=== PATIENT | female | born 2000 | race Caucasian/White ===

== ENCOUNTER 2024-03-11 11:38 | Outpatient (CLI) | payer BC, SELFPAY ==
[2024-03-11 11:46] VITALS: PULSE 75; O2SAT 98
[2024-03-11 11:47] VITALS: BP 112/67; PULSE 88; RESP 16; TEMP 37.1
[2024-03-11] MEDS: CALCIUM CARBONATE 500 MG CHEW PO (13:19)
[2024-03-11 13:26] LABS: Hematocrit 36.8 % (33.0-51.0); Hemoglobin* 12.8 gm/dL (12.0-16.0); Mean Corpuscular HGB Conc 35 gm/dL (32-36); Mean Corpuscular Hemoglobin 33 pg (26-34); Mean Corpuscular Volume 95 fL (80-100); Platelet Count* 141 K/uL (140-440); Red Blood Count 3.87 m/uL (4.00-5.20); White Blood Count* 8.79 K/uL (4.50-11.00)
[2024-03-11 13:31] LABS: Alanine Aminotransferase* 35 U/L (4-35); Aspartate Amino Transferase* 43 U/L (12-35); Creatinine* 0.5 mg/dL (0.5-1.5); Estimated Glomerular Filt Rate 137 ml/min; Slide Review Reflex No
[2024-03-11 13:32] LABS: Appearance Urine Slightly Cloudy (Clear); Bilirubin Urine Negative (Negative); Blood Urine Negative (Negative); Color Urine Yellow (Yellow); Glucose Urine Negative (Negative); Ketones Urine Negative (Negative); Leukocyte Esterase Urine 1+ (Negative); Nitrite Urine Negative (Negative); Protein Urine Negative (Negative); Urobilinogen Urine 0.2 (0.2-1.0)
[2024-03-11 13:36] LABS: Total Protein Urine 12 mg/dL
[2024-03-11] MEDS: LACTATED RINGERS 1000 ML 1,000 ML IV (13:36)
[2024-03-11 13:37] LABS: Protein Creatinine Ratio Urine 0.52 (0-0.19)
[2024-03-11 13:51] LABS: Bacteria Urine Moderate; Clue Cells No Clue Cells Seen (None Seen); RBC Urine 0-2 (0-2); Squamous Epithelial Cell Urine Many (None-Few); Trichomonas No Trichomonas Seen (None Seen); Yeast No Yeast Seen (None Seen)
--- NOTE | 2024-03-11 14:18 | PM.OBLDTN ---
OB - Triage/Final Diagnosis Visit Information Date Seen: 03/11/24 Narrative: The patient is a 23 year old 1 para 0 at 24.1 weeks gestation who presents with lower abdominal pain and cramping. Symptoms started around 730 this morning. Has cramping pain in lower abdomen as well as intermittent sharp pain in RUQ. Also having headaches which are more intense than her usual headaches. Having reflux, but no nausea or vomiting. Has had increase in vaginal discharge noted this morning as well. No contractions. movement seemed decreased earlier, but seems normal since arriving here. No vaginal bleeding. No contractions. No recent abdominal trauma. Took Tylenol at home this AM with little improvement. course has been otherwise uncomplicated. Evaluation Laboratory results: Laboratory Tests 03/11/24 03/11/24 Range/Units 13:11 12:33 WBC 8.79 (4.50-11.00) K/uL RBC 3.87 L (4.00-5.20) m/uL Hgb 12.8 (12.0-16.0) gm/dL Hct 36.8 (33.0-51.0) % MCV 95 (80-100) fL MCH 33 (26-34) pg MCHC 35 (32-36) gm/dL Plt Count 141 (140-440) K/uL Creatinine 0.5 (0.5-1.5) mg/dL Estimated GFR 137 ml/min AST 43 H (12-35) U/L ALT 35 (4-35) U/L Urine Color Yellow (Yellow) Urine Appearance Slightly Cloudy A (Clear) Urine pH 7.0 (5.0-8.5) Ur Specific Pandora 1.010 (1.000-1.030) Urine Protein Negative (Negative) Urine Glucose (UA) Negative (Negative) Urine Ketones Negative (Negative) Urine Blood Negative (Negative) Urine Nitrite Negative (Negative) Urine Bilirubin Negative (Negative) Urine Urobilinogen 0.2 (0.2-1.0) Ur Leukocyte Esterase 1+ A (Negative) Urine RBC 0-2 (0-2) Urine WBC 2-5 (0-5) Ur Squamous Epith Cells Many A (None-Few) Urine Bacteria Moderate A (None) Urine Creatinine 23.0 mg/dL Protein/Creatinin Ratio 0.52 H (0-0.19) Urine Total Protein 12 mg/dL Vaginal Trichomonas No Trichomonas Seen (None Seen) Vaginal Yeast No Yeast Seen (None Seen) Vaginal Clue Cells No Clue Cells Seen (None Seen) Vital signs: Vital Signs - 24 hr 03/11/24 11:46 03/11/24 11:47 03/11/24 11:47 Temperature 98.8 F Pulse Rate 88 Respiratory Rate 16 Blood Pressure 112/67 Pulse Oximetry 98 Comments: Gen: alert, pleasant, NAD Heart: RRR, no murmurs Lungs: CTA b/l Abd: gravid, soft, tender to palpation in suprapubic region. somewhat tender in b/l lower quadrants and RUQ as well Extremities: no edema [place]: uterine irritability Fetus (Single) Heart Rate Baseline: 135 Brickmason Helper Variability: Moderate (6-25) Monitor Accelerations: Absent (appropriate for gestational age) Monitor Decelerations: None Final Diagnosis (1) Cystitis during , antepartum: Status: Acute Problem details: Labs appear c/w cystitis. UCX pending. Will start tx with Keflex. Hydrating with IV fluids here and treating headache with acetaminophen and Reglan. Plan to obtain Amnisure as well to rule out ROM. Will repeat UA following treatment to ensure resolution. Additionally, noted elevated urine protein/creatinine ratio and mildly elevated AST. Normal BP. Will repeat these in outpatient setting as well, particularly urine protein/creatinine. Total Time Spent Total Time Spent: 60 minutes
[2024-03-11] MEDS: METOCLOPRAMIDE 10 MG TABLET PO (14:35)
[2024-03-11] MEDS: ACETAMINOPHEN 500 MG TABLET 1000 MG PO (14:35)
[2024-03-11] MEDS: cephALEXin 500 MG CAPSULE PO (15:09)
[2024-03-11 15:27] LABS: Amnisure Rom* Negative
--- NOTE | 2024-03-11 16:17 | PC.OBNST ---
NST Note NST Note Start: 03/11/24 11:56 Freq: ONCE Status: Active Protocol: Document 03/11/24 16:16 RANJAN (Rec: 03/11/24 16:16 RANJAN [id number]) NST Note 1 Para (# of births) 0 EDC 06/30/24 Gestational Age In Weeks & Days 24 Weeks & 1 Days Patient Presented with Complaint(s) of Contractions/cramping,Pain If Pain, describe location RUQ pain Reactive Yes Appropriate for Gestational Age Yes RN Destini Sullivan, SUMMER Date 03/11/24 Reactive Yes Appropriate for Gestational Age Yes SUMMER Figueroa RN Date 03/11/24 OB NST charge Yes Complete NST Note via Write Note Yes The provider's electronic signature indicates the NST is reactive/appropriate for gestational age. *Note to provider: If an addendum is required, open the patient's chart and click on the note under the Nurse/Allied Health tab.
== END 2024-03-11 15:50 | disposition home or self-care (01) ==
LOC: OB OUT 11:39 → OB 11:39
PROVIDERS: Visit Provider Family Medicine
DX: O47.02 False labor before 37 completed weeks of gestation, second trimester (principal); Z3A.24 24 weeks gestation of pregnancy
CPT/HCPCS: 36415; 59025; 81001; 82565; 82570; 84112; 84156; 84450; 84460; 85027; 87086; 87210; 99199; G0463; A9270; J7120

== ENCOUNTER 2024-06-12 10:33 | Outpatient (CLI) | payer BC, SELFPAY ==
[2024-06-12 10:46] VITALS: PULSE 67; O2SAT 97
[2024-06-12 10:48] VITALS: BP 111/72; PULSE 71; RESP 16; TEMP 36.8
[2024-06-12 11:40] LABS: Clue Cells No Clue Cells Seen (None Seen); Trichomonas No Trichomonas Seen (None Seen); Yeast No Yeast Seen (None Seen)
[2024-06-12 11:40] LABS: Amnisure Rom* Negative
--- NOTE | 2024-06-23 15:00 | PC.OBNST ---
NST Note NST Note Start: 06/12/24 10:48 Freq: ONCE Status: Discharge Protocol: Document 06/12/24 12:20 ABP (Rec: 06/23/24 14:59 ABP [id number]) NST Note 1 Para (# of births) 0 EDC 06/30/24 Gestational Age In Weeks & Days 39 Weeks & 0 Days Patient Presented with Complaint(s) of Leaking fluid Other Complaints To note this NST is back charted and patient was 37.3 weeks gestation at time of NST . Reactive Yes SUMMER Monge, RN Date 06/12/24 Reactive Yes SUMMER Owen RN Date 06/12/24 OB NST charge Yes Complete NST Note via Write Note Yes The provider's electronic signature indicates the NST is reactive/appropriate for gestational age. *Note to provider: If an addendum is required, open the patient's chart and click on the note under the Nurse/Allied Health tab.
--- NOTE | 2024-06-26 15:06 | W.PM.NSTNOTE ---
NST Note NST Note NST Note: NST Note NST Note Start: 06/12/24 10:48 Freq: ONCE Status: Discharge Protocol: Document 06/12/24 12:20 ABP (Rec: 06/23/24 14:59 ABP [id number]) NST Note 1 Para (# of births) 0 EDC 06/30/24 Gestational Age In Weeks & Days 39 Weeks & 0 Days Patient Presented with Complaint(s) of Leaking fluid Other Complaints To note this NST is back charted and patient was 37.3 weeks gestation at time of NST . Reactive Yes SUMMER Monge, RN Date 06/12/24 Reactive Yes SUMMER Owen RN Date 06/12/24 OB NST charge Yes Complete NST Note via Write Note Yes Addendum: FHT: modeate variability, baseline 135 bpm, accels present, absent decels. Damion every 2-5 minutes.
== END 2024-06-12 12:10 | disposition home or self-care (01) ==
LOC: OB OUT 10:34 → OB 10:34
PROVIDERS: Visit Provider Student in an Organized Health Care Education/Training Program
DX: O47.1 False labor at or after 37 completed weeks of gestation (principal); Z3A.37 37 weeks gestation of pregnancy
CPT/HCPCS: 59025; 84112; 87210; G0463

== ENCOUNTER 2024-06-14 08:00 | Inpatient (IN) | payer BC, SELFPAY ==
[2024-06-14] VITALS (59 sets, daily range): BP systolic 82–130; BP diastolic 44–80; PULSE 66–93; RESP 15–18; TEMP 36.3–37; O2SAT 96–100; BMI 28.5
[2024-06-14 07:33] LABS: Amnisure Rom* POSITIVE
[2024-06-14] MEDS: LACTATED RINGERS 1000 ML 1,000 ML 1200 ML IV ×2 (08:58→09:55)
[2024-06-14 09:16] LABS: Basophils Percent Auto 0.2 % (0.0-3.0); Eosinophils Percent Auto 0.1 % (0.0-7.0); Hematocrit 38.7 % (33.0-51.0); Hemoglobin* 13.5 gm/dL (12.0-16.0); Immature Granulocytes Pct Auto 0.5 %; Lymphocytes Percent Auto 11.7 % (20-44); Mean Corpuscular HGB Conc 35 gm/dL (32-36); Mean Corpuscular Hemoglobin 33 pg (26-34); Mean Corpuscular Volume 94 fL (80-100); Monocytes Percent Auto 6.1 % (0.0-11.0); Neutrophils Percent Auto 81.4 % (42.0-72.0); Platelet Count* 124 K/uL (140-440); RDW Coefficient of Variation % 12.4 % (11.5-15.5); Red Blood Count 4.13 m/uL (4.00-5.20)
[2024-06-14] MEDS: LIDOCAINE 2% (PF) 5 ML VIAL EPIDURAL (09:33)
[2024-06-14] MEDS: ROPIVACAINE 0.2% 100 ml 100 ML 12 MG EPIDURAL (09:40)
[2024-06-14 09:47] LABS: Slide Review Reflex No
--- NOTE | 2024-06-14 09:48 | P.ANBPRC_ITS ---
PFSH PFSH Social History What is your current living situation?: I presently have a place to live Problems where you live: no known problems In the past 12 months, utilities in danger of being shut off: no In past 12 months, lack of transportation kept you from medical appts, meetings, work, or getting things needed for daily living: no In the past 12 mos, have been you worried that your food would run out before you had money to buy more?: never true In the past 12 mos, the food you bought just didn't last and you didn't have money to buy more?: never true Smoking Status: Never smoker How often does anyone, including family, friends and others, physically hurt you : never How often does anyone, including family, friends and others, insult or talk down to you: never How often does anyone, including family, friends and others, threaten you with harm: never How often does anyone, including family, friends and others, scream or curse at you: never Meds Home Medications and Allergies Home Medications ?Medication ?Instructions ?Recorded ?Confirmed ?Type vitamins-iron fumarate 65 1 tab PO DAILY 03/11/24 06/14/24 History mg iron-folic acid 1 mg tablet magnesium 200 mg tablet 200 mg PO DAILY 06/12/24 06/14/24 History Allergies Allergy/AdvReac Type Severity Reaction Status Date / Time nickel Allergy Intermediate Hives Verified 06/12/24 11:03 Results Labs Labs: Laboratory Results - last 24 hr 06/14/24 07:15 Membrane Rupture POSITIVE Vital Signs Vital Signs: Last Vital Signs Temp 98.6 F 06/14/24 06:53 Pulse 75 06/14/24 09:43 Resp 18 06/14/24 06:53 BP 101/57 L 06/14/24 09:43 Pulse Ox 100 06/14/24 09:40 Weight: 75.432 kg Height: 162.56 cm Anesthesia Procedures Epidural Insertion Patient Location: OB Start Time: : Stop Time: 10:10 Start Date: 06/14/24 Stop Date: 06/14/24 Reason for Block: procedure for pain Patient Position: sitting Performed By: Elvia Bianchi Preanesthetic Checklist: IV checked, risks and benefits discussed, monitors and equipment checked, pre-op evaluation, timeout performed and anesthesia consent Prep: chlorhexidine gluconate Monitoring: blood pressure monitoring, continuous pulse oximetry and heart rate Approach: midline Vertebral Space: lumbar (1-5) Epidural Technique: EVGENY saline Needle Type: Tuohy needle Injection Technique: continuous catheter (continuous catheter) Needle gauge: 17 Needle Length (cm): 10 cm Needle Insertion Depth (cm): 6 Catheter Gauge: 19 Catheter Type: multi-orifice Catheter at skin depth (cm): 15 Test Dose Result: negative and lidocaine 1.5% with epinephrine 1 to 200,000
[2024-06-14] MEDS: PHENYLEPHRINE 100 MCG/ML SYRINGE IVP ×3 (09:51→10:24)
[2024-06-14] MEDS: ePHEDrine sulfate 5 MG/ML inj 10 MG IVP (10:53)
[2024-06-14] MEDS: CEFAZOLIN 2 GM INJ IVP (12:03)
--- NOTE | 2024-06-14 12:08 | P.OBHP_ITS ---
OB - H&P: HPI Labor/Induction History of Present Illness Time Seen by Provider: 12:10 Date Seen: 06/14/24 Chief Complaint: The patient is a 23 year old 1 para 0 at 37+5 weeks gestation by LMP, who presents with SROM. Chief complaint: Maternity : 1 Para: 0 Narrative: Fadumo Mendoza is a 23 year old female at 37+5 weeks gestation by LMP, who presents with SROM. uncomplicated. LOF at home, amnisure positive. Clear fluid. Contractions became more frequent and intense. Epidural placed with good effect. Patient checked by MD at 1145, found to have breech presentation. Cervix 9.5 cm/90%/+1. Thick meconium present. Presentation confirmed on BSUS. History of Present Dating criteria: based on LMP care: good care Ultrasounds: normal 1st trimester US and normal mid trimester US Labs Blood type: A (+) positive Rubella: immune RPR/VDLR: nonreactive GBS status: negative HBsAG: negative Review of Systems Status of ROS: Reports: 10 or more systems reviewed and unremarkable except as noted in History and below Meds Home Medications and Allergies Home Medications ?Medication ?Instructions ?Recorded ?Confirmed ?Type vitamins-iron fumarate 65 1 tab PO DAILY 03/11/24 06/14/24 History mg iron-folic acid 1 mg tablet magnesium 200 mg tablet 200 mg PO DAILY 06/12/24 06/14/24 History Allergies Allergy/AdvReac Type Severity Reaction Status Date / Time nickel Allergy Intermediate Hives Verified 06/12/24 11:03 OB - H&P: Exam Physical Exam: Vital signs: Temp Pulse Resp BP Pulse Ox 98.1 F 72 16 122/58 L 99 06/14/24 10:22 06/14/24 11:49 06/14/24 10:22 06/14/24 11:49 06/14/24 10:18 Narrative: General appearance: Well-appearing adult female. Alert, oriented and appropriate. Sitting up in hospital bed. HEENT: EOMI, no conjunctival injection or discharge. MMM. Neck: Supple. CV: RRR, no rubs, murmurs or extra heart sounds. Pulm: CTAB, no wheezes, rales or rhonchi. Abdomen: Gravid MSK: Moving all extremities. Ext: Warm and well-perfused. Trace. Skin: No rashes appreciated over exposed skin. Neuro: Grossly normal strength and sensation. No focal deficits. Psych: Normal affect. Detailed Labor and Delivery Exam: Patient Gravid: Yes Dilation (cm): 9 Effacement (%): 90 Fetus (Single): Station: +1 Position: Other (Breech) Amn iotic Membrane Status: SROM Amniotic Membrane Fluid Description: Meconium Stained Heart Rate Baseline: 120 Monitor Accelerations: Present Monitor Decelerations: None Seat Pack Inspector Variability: Moderate (6-25) OB - Results Labs Labs: Short CBC 06/14/24 Range/Units 08:55 WBC 12.10 H (4.50-11.00) K/uL Hgb 13.5 (12.0-16.0) gm/dL Hct 38.7 (33.0-51.0) % Plt Count 124 L (140-440) K/uL OB - Problem Based A/P Additional Plan (1) Breech presentation of fetus palpable vaginally: Status: Acute Plan: - OB provider Dr. Burt consulted for urgent delivery d/t breech presentation and advanced cervical dilation - Dr. Orellana will be present at delivery for peds - monitoring category I (2) Term : Status: Acute
--- NOTE | 2024-06-14 12:10 | P.OBCN_ITS ---
OB - CN: HPI Date of Consult Time Seen by Provider: 12:11 Date Seen: 06/14/24 Patient: Eddie Patient Consult date: 06/14/24 Requesting Physician: Juju Orellana DO Primary Care Provider: Juju Orellana DO Consult Narrative Narrative: The patient is a 23 year old G1 P 0 at 37.5 weeks gestation that was admitted to the [facility] on 06/14/24 for spontaneous labor. I was consulted at due to breech presentation with patient at 9 cm. BSUS confirmed that breech presentation. The patient was consented for section and blood. She understands that the four main categories of risk include pain, bleeding, infection, and damage to surrounding structures. Intraoperative pain will be manage with spinal anesthesia or epidural anesthesia. If that those are not effective or not appropriate for the clinical situation, general anesthesia will be administered. Immediately postop, TAP block will be performed. Throughout her recovery course, she will have on PO pain medications such as ibuprofen, Tylenol, and oxycodone. Regarding infection, she understands that we will be delivering appropriate antibiotics, however that the risk of infection following section still is approximately 5%. She understands that though the risk is very low that there is always a risk of damage to the bladder, uterus, ovaries, fallopian tubes, bowels, ureters, or even the fetus. She understands that most injuries can be addressed at the time of surgery, however, such an injury may require additional surgeries to fix. Lastly, she understands that a section carries a risk of bleeding, and that while this bleeding can be addressed with multiple medical and surgical modalities (including hysterectomy), that there is the possibility of needing a blood transfusion. She reports she would accept a blood transfusion if needed. Lastly, she understands that a section does increase risks for future pregnancies and deliveries including, but not limited to, the risk of uterine rupture or placenta accreta. We discussed postoperative recovery expectations as well. All questions answered to patient's satisfaction. Consent form signed. Hgb 13.5 Plt 124 Plan: Will proceed toward urgent delivery History History 1 Elective abortions Para 1 Spontaneous abortions Hx # Term Pregnancies Ectopic pregnancies Hx # Pregnancies Multiple births Number of Living Children 0 Labs GBS status: negative OB Labs: Lab Assessment Start: 06/14/24 08:03 Freq: ONCE Status: Active Protocol: PC.OBGBS Activity Type Activity Date Activity User E-sign Co-sign Detail Recorded Client Recorded Date Recorded By Document 06/14/24 08:09 [facility] 06/14/24 08:15 [facility] [place]/14/24 08:09 Lab Assessment GBS Status negative GBS Additional Criteria None No Treatment Needed OK Are Labs Available Yes Maternal Blood Type A Maternal RH Factor Positive Evaluate Maternal Rubella Immune Status Immune Hepatitis B Surface Antigen Negative Maternal HIV Status Negative Maternal Syphillis (RPR) Status Negative PFSH PFSH Social History What is your current living situation?: I presently have a place to live Problems where you live: no known problems In the past 12 months, utilities in danger of being shut off: no In past 12 months, lack of transportation kept you from medical appts, meetings, work, or getting things needed for daily living: no In the past 12 mos, have been you worried that your food would run out before you had money to buy more?: never true In the past 12 mos, the food you bought just didn't last and you didn't have money to buy more?: never true Smoking Status: Never smoker How often does anyone, including family, friends and others, physically hurt you : never How often does anyone, including family, friends and others, insult or talk down to you: never How often does anyone, including family, friends and others, threaten you with harm: never How often does anyone, including family, friends and others, scream or curse at you: never Meds Home Medications and Allergies Home Medications ?Medication ?Instructions ?Recorded ?Confirmed ?Type vitamins-iron fumarate 65 1 tab PO DAILY 03/11/24 06/14/24 History mg iron-folic acid 1 mg tablet magnesium 200 mg tablet 200 mg PO DAILY 06/12/24 06/14/24 History Allergies Allergy/AdvReac Type Severity Reaction Status Date / Time nickel Allergy Intermediate Hives Verified 06/12/24 11:03 OB - H&P: Exam Physical Exam: Vital signs: Temp Pulse Resp BP Pulse Ox 98.1 F 72 16 122/58 L 99 06/14/24 10:22 06/14/24 11:49 06/14/24 10:22 06/14/24 11:49 06/14/24 10:18 OB - Results Labs Labs: Short CBC 06/14/24 Range/Units 08:55 WBC 12.10 H (4.50-11.00) K/uL Hgb 13.5 (12.0-16.0) gm/dL Hct 38.7 (33.0-51.0) % Plt Count 124 L (140-440) K/uL
[2024-06-14] MEDS: AZITHROMYCIN 500 MG in 0.9 % SODIUM CHLORIDE 250 ml 250 ML 255 MG IVPB (12:28)
[2024-06-14] MEDS: LACTATED RINGERS 1000 ML 1,000 ML 125 ML IV (12:33)
[2024-06-14] MEDS: TRANEXAMIC ACID 100 MG/ML INJ 1000 MG IV (12:42)
[2024-06-14] MEDS: KETOROLAC 30 MG/ML inj IVP ×2 (13:03→19:00)
--- NOTE | 2024-06-14 13:05 | P.ANES_ITS ---
Anesthesia Charges Start Date/Time Anesthesia Start Date: 06/14/24 Anesthesia Start Time: 12:17 Stop Date/Time Anesthesia Stop Date: 06/14/24 Anesthesia Stop Time: 13:34 Summary Emergency: SPORTS THERAPIST
--- NOTE | 2024-06-14 13:06 | W.PM.NB ---
Nerve Block Nerve Block Time Seen by Provider: 14:00 Date Seen: 06/14/24 Type of block requested by surgeon for post-operative analgesia: TAP Side: bilateral Time out performed: Yes Verification of patient name: Yes Verification of date of : Yes Site marking: site marked Name of person performing procedure: Mat Rodriguez Continuous monitoring Was continuous monitoring of O2 sat, B/P, monitoring tech, recorded every 15 minutes?: Yes Procedure Checklist: sterile prep, needles and gloves Ultrasound guided. Images saved: Yes Medications given in 5ml increments after negative aspiration: Marcaine %: 0.25 mL: 30 Needle gauge: 20 and Exparel mL: 10 Needle gauge: 20 Patient tolerated procedure well: Yes Additional comments: Injected in 5ml increments after negative aspiration Block Charges Block Charge (with Pro Fee): TAP Bilateral Use of Ultrasound Machine for Block: Yes- US Guidance/pain block
--- NOTE | 2024-06-14 13:39 | PM.OBPRCCS ---
Procedure Time Seen by Provider: 12:00 Date of procedure: 06/14/24 Pre-op diagnosis: 1. Breech presentation in spontaneous labor Post-op diagnosis: same Procedure Done: only Will [facility] bill your pro fee for this procedure?: Yes Blood Loss Measurement Type: QBL (568 cc) Bakri Used: No Urine Output (mL): 100 Urine Output Comment: Blood tinged Anesthesia Type: Epidural Procedure Description: DELIVERY BY SECTION Date of Service: 06/14/24 Delivery time: 1233 Summary: Admitted for spontaneous labor at 37.5 weeks, Primary Lower uterine transverse section, Pfannenstiel, Closed with sutures, QBL 568 cc, No complications, Findings: Normal uterus, bilateral ovaries and tubes 6/9 weight 7lb 6.873oz Primary Indication: 1. Breech in spontaneous labor SVE in the OR: /+1. Breech presentation noted. Thick meconium. Procedures: 1. Primary Lower uterine transverse section Specimens Removed: Placenta Surgeon: Yue Burt MD Anesthesia: Epidural, TAP Report: Prophylactic antibiotic, 2 g of Ancef and 500 mg of Azithromycin were given before patient was taken to OR. After arrival to the operating room patient was placed in the supine position with left lateral tilt after administration of epidural anesthesia. Laparotomy A pfannenstiel incision was made through the anterior abdominal wall with #10 scalpel approximately 2 cm above the pubic symphysis. The incision was extended sharply with the #10 scalpel through the subcutaneous tissue to the level of fascia. The fascia was entered sharply with a #10 scalpel (Pfannenstiel) in the midline and extended in semi-elliptical fashion with bluntly. The rectus muscles were in the midline bluntly with digits. The peritoneum was then entered bluntly. The peritoneal incision was then extended superiorly and inferiorly under direct visualization with care being taken to avoid bladder and bowel. No adhesions were noted. The peritoneal incision was enlarged bluntly by lateral traction from the surgeon's and personal banking assistant's hand. Anselmo retractor was inserted into the abdomen. Delivery A bladder flap was developed by grasping with Togolese forcep and enter with Metzenbaun scissor. Then sharp and blunt dissection with Metzenbaum scissor and fingers were performed. A low transverse hysterotomy was made then with #10 scalpel and extended laterally and cephalad with fingers in a low transverse fashion with Manu Bhakta technique with care being taken to avoid injury to the fetus. buttocks were palpated and one leg was delivered through hysterotomy. hips were rotated to deliver the second leg through the hysterotomy. Both legs were extended using the Pinard maneuver. With gentle pressure the legs and body gradually delivered once the scapula could be seen that the baby was gently rotated and both arms were delivered using the loveset maneuver. Maintaining head flexion, head was delivered without difficulty using the [id number] maneuver. With delivery of the baby, no extension was noted. Placenta was delivered spontaneously with steady traction on cord and manual separation of placenta from uterine wall. Closure Uterine cavity was cleaned after placental delivery with lap sponge x 3. The hysterotomy was closed in two layers with stitches using 0 vicryl with continuous locking stitches and 0 monocryl in a continuous non locking manner. Hemostasis was achieved as needed with electrocautery. The ovaries/tubes/uterine surface were evaluated. They were found to be normal. Anselmo retractor removed and hemostasis was confirmed again. Fascia was closed with running stitches using 0 vicryl. Subcutaneous layer was irrigated. Hemostasis was checked for and found to be adequate. The subcutaneous layer was closed with running 2-0 chromic sutures. The skin was closed with 4-0 vicryl subcuticular sutures. The incision was cleaned and covered with a compression bandage and the procedure considered terminate at this time. Intraoperative Complications: None QBL: 568 cc Uterotonics: 40 u of pitocin and 1g of TXA Disposition: The patient tolerated the procedure well. She was recovered in Obstetric PACU for close monitoring in stable condition, with a contracted uterus and normal transvaginal bleeding. The infant was sent to mother?s bedside. The placenta was sent to pathology. Debrief with OR team performed and specimen reviewed at the conclusion of the procedure. Infant total score - 1 minute: 6 total score - 5 minute: 9
--- NOTE | 2024-06-14 13:44 | W.ANESCHARGE ---
Anesthesia Charges Start Date/Time Anesthesia Start Date: 06/14/24 Anesthesia Start Time: 12:17 Stop Date/Time Anesthesia Stop Date: 06/14/24 Anesthesia Stop Time: 13:34 Summary Emergency: MDA
--- NOTE | 2024-06-14 15:23 | PM.ANPOST ---
Post Anesthesia Note Post Anesthesia Note Patient seen: Inpatient Respiratory Status: adequate Cardiovascular Status: adequate Mental Status: baseline Pain: adequate Temp: baseline Anesthetic awareness: N/A Complications: none Follow care: none
[2024-06-14] MEDS: ACETAMINOPHEN 500 MG TABLET 1000 MG PO ×2 (17:55→23:21)
[2024-06-15] VITALS (21 sets, daily range): BP systolic 100–115; BP diastolic 61–71; PULSE 65–78; RESP 16; TEMP 36.6–36.9; O2SAT 96–99
[2024-06-15] MEDS: KETOROLAC 30 MG/ML inj IVP ×4 (01:00→18:58)
[2024-06-15] MEDS: ACETAMINOPHEN 500 MG TABLET 1000 MG PO ×3 (05:57→21:04)
[2024-06-15 07:18] LABS: Hemoglobin* 10.4 gm/dL (12.0-16.0)
[2024-06-15] MEDS: DOCUSATE SODIUM 100 MG CAPSULE PO (09:00)
--- NOTE | 2024-06-15 10:39 | PM.OBPNVD1 ---
OB - PN:Subj Subjective Date Seen: 06/15/24 Interval history: Fadumo is a 23 yo G1 now P 1-0-0-1 woman who is status post primary low-transverse section at 37 weeks, 5 days on 06/14/24 for indication of breech presentation in active labor. Narrative: Fadumo is overall feeling well. Her infant son is doing well. She is currently bottle feeding with a combination of expressed breast milk and formula. She reports that pain is well controlled. She denies any abnormally heavy bleeding. She is tolerating solid foods and denies any nausea or vomiting. She is passing flatus. OB - PN: Obj Exam Physical Exam: Vital signs: Temp Pulse Resp BP Pulse Ox O2 Del Method 98.0 F 68 16 102/68 98 Room Air 06/15/24 09:00 06/15/24 09:00 06/15/24 09:00 06/15/24 09:00 06/15/24 09:00 06/15/24 09:00 Narrative: General: Pleasant, no acute distress Heart: Regular rate and rhythm, no murmur or gallop Lungs: Clear to auscultation bilaterally Abdomen: Soft, nontender, fundus well below umbilicus, dressing clean, dry, and intact Lower extremities: No edema or erythema OB - PN: Obj Data Labs Labs: Laboratory Results - last 24 hr 06/14/24 06/15/24 08:55 07:08 Hgb 10.4 L Blood Type A Positive Antibody Screen NEGATIVE OB - PN: A/P Delivery Assessment and Plan (1) Status post delivery: Status: Acute (2) Anemia associated with acute blood loss: Status: Acute Assessment and Plan: Begin ferrous sulfate q.o.d.. Plan day: 1 Plan: routine care
[2024-06-15] MEDS: FERROUS SULFATE 325 MG TABLET PO (12:49)
[2024-06-15 23:23] LABS: Rapid Plasma Reagin (RPR) Non Reactive (Non Reactive)
[2024-06-16 00:51] VITALS: TEMP 36.6
[2024-06-16] MEDS: IBUPROFEN 600 MG TABLET PO ×2 (00:51→08:45)
[2024-06-16 06:20] VITALS: TEMP 36.6
[2024-06-16] MEDS: ACETAMINOPHEN 500 MG TABLET 1000 MG PO ×2 (06:20→11:56)
[2024-06-16] MEDS: DOCUSATE SODIUM 100 MG CAPSULE PO (08:45)
[2024-06-16 09:04] VITALS: BP 110/72; PULSE 71; RESP 16; TEMP 37.1; O2SAT 98
--- NOTE | 2024-06-16 10:18 | PM.OBDSVD1 ---
DS: Providers Provider Date Seen: 06/16/24 Date of admission: 06/14/24 08:00 Primary care physician: Juju Orellana DO Admitting Clinician: Apolonia Garcia MD Attending Physician on discharge: Calista Mcdonald DO Date of Discharge: 06/16/24 DS: Diagnosis Discharge Diagnosis (1) Status post delivery: Status: Acute (2) Anemia associated with acute blood loss: Status: Acute Exam Narrative: Exam Narrative: General: Pleasant, no acute distress Heart: Regular rate and rhythm, no murmur or gallop Lungs: Clear to auscultation bilaterally Abdomen: Normoactive bowel sounds. Soft, nontender, fundus well below umbilicus. Incision clean, dry, and intact Lower extremities: No edema or erythema Const: Vital Signs, click to edit/add: Vital Signs - 24 hr 06/15/24 12:50 06/15/24 16:01 06/15/24 19:41 Temperature 97.8 F 98.1 F 98.1 F Pulse Rate [Pulse Oximeter] 72 74 Respiratory Rate 16 16 Blood Pressure [Le ft Arm] 100/66 107/71 Pulse Oximetry 96 97 Oxygen Delivery Me thod Room Air Room Air 06/15/24 21:04 06/15/24 21:51 06/15/24 23:42 Temperature 98.1 F 98.1 F 97.8 F Pulse Rate [Pulse Oximeter] 78 Respiratory Rate 16 Blood Pressure [Le ft Arm] 100/64 Pulse Oximetry 98 Oxygen Delivery Me thod Room Air 06/16/24 00:51 06/16/24 06:20 06/16/24 09:04 Temperature 97.8 F 97.8 F 98.7 F Pulse Rate [Pulse Oximeter] 71 Respiratory Rate 16 Blood Pressure [Le ft Arm] 110/72 Pulse Oximetry 98 Oxygen Delivery Me thod Room Air OB - DS: Summary Hospital Course Hospital Course: Fadumo is a 23 yo G1 now P 1-0-0-1 woman who is status post primary low-transverse section at 37 weeks, 5 days on 06/14/24 for indication of breech presentation in active labor. She had an uncomplicated delivery. She delivered a viable male . She is primarily bottle feeding, but has attempted latch. the patient has done well. Today, on day 2, she reports an increase in pain, but feels that it is manageable. She is ambulating and urinating without difficulty. She is tolerating regular diet and passing flatus. She requests early discharge today. Peripartum Data Procedures: Procedures Operation Date: 06/14/24 12:15 Actual Procedure Side Surgeon p Primary Section Not Applicable Yuefernanda Burt MD Gender: Male Time Spent with Patient Time attestation: Total time spent providing and/or coordinating discharge services: Discharge Plan Discharge Disposition: Home, Self-Care Date of Admission: 06/14/24 08:00 Attending Provider on Discharge: Calista Mcdonald Primary Care Provider: Juju Orellana Condition: Stable Anticipated Discharge Date/Time: 06/16/24 10:20 Discharge Medications: New acetaminophen 500 mg Tablet 1,000 mg PO Q6H PRN (Reason: Pain) Qty: 0 0RF ferrous sulfate 325 mg (65 mg iron) Tablet 325 mg PO Q48H Qty: 0 0RF docusate sodium 100 mg Capsule 100 mg PO BID Qty: 60 0RF ibuprofen 600 mg Tablet 600 mg PO Q6H PRN (Reason: Pain) Qty: 60 0RF Lanolin (HPA) 100 % Cream 1 applic topical Q1H PRNQty: 0 0RF oxycodone 5 mg Tablet 5 - 10 mg PO Q4H PRN (Reason: Pain) Qty: 20 0RF Continued magnesium 200 mg tablet 200 mg PO DAILY vit-iron fum-folic ac 65 mg iron- 1 mg tablet 1 tab PO DAILY Discharge Orders: Discharge Order (Routine); Ordered 06/16/24 Ordered By: Calista Mcdonald Patient Education: OB /Bottle Feeding Activity Detail: No lifting greater than 20 lbs for 6 weeks Discharge Diet: Regular Follow Up Appointments: Juju Orellana DO [Primary Care Provider] - Calista Mcdonald MD [Staff Physician] - Forms: [employer] Instructions Discharge Comments: 2 weeks for incision check at [facility]. 6 weeks with [facility] provider DS:Data Additional Comments Additional comments: Hemoglobin 10.4 on 06/15/2024
== END 2024-06-16 12:01 | disposition home or self-care (01) | DRG 540 ==
LOC: OB OUT 08:01 → OB 08:01
PROVIDERS: Family Medicine; Obstetrics & Gynecology; Admitting Provider Student in an Organized Health Care Education/Training Program; PCP Family Medicine; Visit Provider Family Medicine
PROC: (CPT 59514; principal; 2024-06-14 12:00)
DX: O32.1XX0 Maternal care for breech presentation, not applicable or unspecified (principal); Z3A.37 37 weeks gestation of pregnancy; Z37.0 Single live birth; O77.0 Labor and delivery complicated by meconium in amniotic fluid; O90.81 Anemia of the puerperium; D62 Acute posthemorrhagic anemia; G43.909 Migraine, unspecified, not intractable, without status migrainosus; G89.18 Other acute postprocedural pain; O42.02 Full-term premature rupture of membranes, onset of labor within 24 hours of rupture
CPT/HCPCS: 01967; 01968; 36415; 59025; 64488; 76815; 76942; 84112; 85018; 85025; 86592; 86850; 86900; 86901; 87210; 88307; 99140; G0463; A9270; C9290; J0456; J0665; J0690; J1100; J1885; J2274; J2371; J2405; J2590; J2795; J3010; J7050; J7120